=== PATIENT | male | born 1970 | race Hispanic/Latino ===

== ENCOUNTER 2017-05-21 23:16 | Emergency (ER) | payer OTHER ==
[2017-05-21] MEDS ORDERED: ONDANSETRON ODT 4 MG TAB ONE (23:50)
[2017-05-21] MEDS ORDERED: MORPHINE SULFATE 4 MG/1ML SYG ONE (23:51)
== END 2017-05-22 00:24 | disposition home or self-care (01) ==
LOC: EDH 23:16
DX: S20.211A Contusion of right front wall of thorax, initial encounter (principal); V69.88XA Occupant (driver) (passenger) of heavy transport vehicle injured in other specified transport accidents, initial encounter; Y93.89 Activity, other specified; Y92.89 Other specified places as the place of occurrence of the external cause; Y99.8 Other external cause status
CPT/HCPCS: 71100; 96372; 99285; J2270